=== PATIENT | male | born 1945 | race American Indian/Alaskan Native ===

== ENCOUNTER 2019-01-09 10:59 | Inpatient (IN) | payer MEDICARE, OTHER ==
--- NOTE | 2019-01-09 11:08 | Emergency Department Report ---
ED Altered Mental Status HPI - General Stated Complaint: NEURO ISSUES Time Seen by Provider: 01/09/19 11:00 Source: EMS Mode of arrival: Stretcher Limitations: Altered Mental Status - History of Present Illness Initial Comments: 73-year-old male with a past medical history of Alzheimer's dementia, hyperlipidemia, hypertension, and history of prostate cancer presents to the hospital from retirement with complaints of alteration in mental status. Patient presents as a stroke alert. Last known well time was 10:00 PM. At 9 AM staff noted that patient was sleeping in the bed. When he checked on him at 10 AM he was on the floor all response to painful stimuli. EMS reports the patient was unresponsive to painful stimuli upon their arrival but has slowly become more responsive in route to the hospital. Patient now currently opens his eyes on command but is not speaking and reliably fine other commands. EMS reports normal vitals with exception of heart rate in the 130s. EMS also reports that pt might be altered due to Seroquel provided by assisted. At patient's baseline he is confused, needs supervision during ambulating and tolieting. He assistance with bathing, dressing, eating, and grooming. Patient's daughter states that patient was recently admitted and discharged from [facility] for decreased mental status and decreased by mouth intake. Sy mptoms were thought to be due to UTI, dehydration, and possible Ambien use although daughter states to her knowledge patient is not currently on Ambien. - Related Data Home Medications Medication Instructions Recorded Confirmed Last Taken Aspirin EC [Aspirin Enteric Coated 81 mg PO QDAY 01/09/19 01/09/19 Unknown TAB] Cefdinir 300 mg PO BID 01/09/19 01/09/19 Unknown Cholecalciferol (Vitamin D3) 2,000 unit PO QDAY 01/09/19 01/09/19 Unknown [Vitamin D3 2,000 UNIT CAP] Lisinopril [Zestril TAB] 40 mg PO QDAY 01/09/19 01/09/19 Unknown Montelukast [Singulair] 10 mg PO QPM 01/09/19 01/09/19 Unknown QUEtiapine [SEROquel] 75 mg PO BID 01/09/19 01/09/19 Unknown Thiamine HCl 100 mg PO DAILY 01/09/19 01/09/19 Unknown amLODIPine [Norvasc] 5 mg PO DAILY 01/09/19 01/09/19 Unknown Allergies Allergy/AdvReac Type Severity Reaction Status Date / Time No Known Allergies Allergy Unverified 01/09/19 11:01 ED Review of Systems ROS: Stated complaint: NEURO ISSUES Other details as noted in HPI Comment: Unobtainable due to pts medical conditions (pt does not answer questions) ED Past Medical Hx - Medications Home Medications: Home Medications Medication Instructions Recorded Confirmed Last Taken Type Aspirin EC [Aspirin Enteric Coated 81 mg PO QDAY 01/09/19 01/09/19 Unknown History TAB] Cefdinir 300 mg PO BID 01/09/19 01/09/19 Unknown History Cholecalciferol (Vitamin D3) 2,000 unit PO QDAY 01/09/19 01/09/19 Unknown History [Vitamin D3 2,000 UNIT CAP] Lisinopril [Zestril TAB] 40 mg PO QDAY 01/09/19 01/09/19 Unknown History Montelukast [Singulair] 10 mg PO QPM 01/09/19 01/09/19 Unknown History QUEtiapine [SEROquel] 75 mg PO BID 01/09/19 01/09/19 Unknown History Thiamine HCl 100 mg PO DAILY 01/09/19 01/09/19 Unknown History amLODIPine [Norvasc] 5 mg PO DAILY 01/09/19 01/09/19 Unknown History ED Physical Exam - Other Other exam information: General: No limitations, patient is alert in no acute distress Head exam: Atraumatic/no hematoma, normocephalic Eyes exam: Normal appearance, pupils equal and reactive to light Neck exam: Normal inspection, full range of motion, no meningismus nontender Respiratory exam: Clear to auscultation bilateral, no wheezes, rales, crackles Cardiovascular: Normal rate and rhythm, normal heart sounds Abdomen: Soft, nondistended, and nontender, with normal bowel sounds, no rebound, or guarding Extremity: Full range of motion normal inspection no deformity Back: Normal Inspection, full range of motion, no tenderness Neurologic: Altered but open eyes to command in voice. Sensation grossly intact. Equal bilateral upper and lower extremity strength. Does not consistently follow commands. Does not answer orientation questions. Psychiatric: normal affect, normal mood Skin: Warm, dry, intact ED Course Vital Signs 01/09/19 01/09/19 01/09/19 10:58 11:36 11:45 Pulse Rate 92 H Respiratory 22 Rate Blood Pressure 124/85 126/85 O2 Sat by Pulse 100 98 97 Oximetry 01/09/19 01/09/19 01/09/19 12:00 12:15 12:30 Pulse Rate 99 H 95 H Respiratory 13 13 Rate Blood Pressure 126/85 124/85 124/85 O2 Sat by Pulse 98 97 Oximetry 01/09/19 01/09/19 01/09/19 12:46 13:00 13:15 Pulse Rate 110 H 96 H 89 Respiratory 25 H 39 H 38 H Rate Blood Pressure 126/80 128/85 141/85 O2 Sat by Pulse 99 99 99 Oximetry 01/09/19 01/09/19 01/09/19 13:30 13:45 14:00 Pulse Rate 90 89 91 H Respiratory 37 H 29 H 40 H Rate Blood Pressure 131/83 133/88 138/86 O2 Sat by Pulse 95 99 99 Oximetry - Reevaluation(s) Reevaluation #1: 01/09/19 14:30 pt had a seizure, ativan and keppra ordered, will inform admitting hospitalist - Consultations Consultation #1: 01/09/19 11:08 Case d/w Neurology Dr Choi (he evaluated pt) agrees sx likely related to encephalopathy as opposed to stroke. see his note - Lab Data Result diagrams: 01/09/19 11:28 01/09/19 11:39 Lab Results 01/09/19 01/09/19 01/09/19 Range/Units 11:05 11:28 11:28 WBC 5.6 (4.5-11.0) K/mm3 RBC 4.48 (3.65-5.03) M/mm3 Hgb 12.8 (11.8-15.2) gm/dl Hct 38.4 (35.5-45.6) % MCV 86 (84-94) fl MCH 29 (28-32) pg MCHC 33 (32-34) % RDW 15.2 (13.2-15.2) % Plt Count 214 (140-440) K/mm3 Lymph % (Auto) 33.1 (13.4-35.0) % [place] % (Auto) 7.4 H (0.0-7.3) % Eos % (Auto) 2.1 (0.0-4.3) % Baso % (Auto) 0.9 (0.0-1.8) % Lymph # 1.8 (1.2-5.4) K/mm3 [place] # 0.4 (0.0-0.8) K/mm3 Eos # 0.1 (0.0-0.4) K/mm3 Baso # 0.0 (0.0-0.1) K/mm3 Seg Neutrophils % 56.5 (40.0-70.0) % Seg Neutrophils # 3.1 (1.8-7.7) K/mm3 PT 14.0 (12.2-14.9) Sec. INR 1.02 (0.87-1.13) APTT 30.0 (24.2-36.6) Sec. Thrombin Time 16.8 (15.1-19.6) Sec. VBG pH (7.320-7.420) Sodium (137-145) mmol/L Potassium (3.6-5.0) mmol/L Chloride (98-107) mmol/L Carbon Dioxide (22-30) mmol/L Anion Gap mmol/L BUN (9-20) mg/dL Creatinine (0.8-1.5) mg/dL Estimated GFR ml/min BUN/Creatinine Ratio % Glucose (75-100) mg/dL POC Glucose 108 H (70-105) Lactic Acid (0.7-2.0) mmol/L Calcium (8.4-10.2) mg/dL Total Bilirubin (0.1-1.2) mg/dL AST (5-40) units/L ALT (7-56) units/L Alkaline Phosphatase (35-129) units/L Ammonia (25-60) umol/L Total Creatine Kinase (55-170) units/L CK-MB (CK-2) (0.0-4.0) ng/mL CK-MB (CK-2) Rel Index (0-4) Troponin T (0.00-0.029) ng/mL Total Protein (6.3-8.2) g/dL Albumin (3.9-5) g/dL Albumin/Globulin Ratio % TSH (0.270-4.200) mlU/mL Free T4 (0.76-1.46) ng/dL Urine Color (Yellow) Urine Turbidity (Clear) Urine pH (5.0-7.0) Ur Specific [place] (1.003-1.030) Urine Protein (Negative) mg/dL Urine Glucose (UA) (Negative) mg/dL Urine Ketones (Negative) mg/dL Urine Blood (Negative) Urine Nitrite (Negative) Urine Bilirubin (Negative) Urine Urobilinogen (<2.0) mg/dL Ur Leukocyte Esterase (Negative) Urine WBC (Auto) (0.0-6.0) /HPF Urine RBC (Auto) (0.0-6.0) /HPF Urine Mucus /HPF Urine Opiates Screen Urine Methadone Screen Ur Barbiturates Screen Ur Phencyclidine Scrn Ur Amphetamines Screen U Benzodiazepines Scrn Urine Cocaine Screen U Marijuana (THC) Screen Drugs of Abuse Note 01/09/19 01/09/19 01/09/19 Range/Units 11:28 11:28 11:28 WBC (4.5-11.0) K/mm3 RBC (3.65-5.03) M/mm3 Hgb (11.8-15.2) gm/dl Hct (35.5-45.6) % MCV (84-94) fl MCH (28-32) pg MCHC (32-34) % RDW (13.2-15.2) % Plt Count (140-440) K/mm3 Lymph % (Auto) (13.4-35.0) % [place] % (Auto) (0.0-7.3) % Eos % (Auto) (0.0-4.3) % Baso % (Auto) (0.0-1.8) % Lymph # (1.2-5.4) K/mm3 [place] # (0.0-0.8) K/mm3 Eos # (0.0-0.4) K/mm3 Baso # (0.0-0.1) K/mm3 Seg Neutrophils % (40.0-70.0) % Seg Neutrophils # (1.8-7.7) K/mm3 PT (12.2-14.9) Sec. INR (0.87-1.13) APTT (24.2-36.6) Sec. Thrombin Time (15.1-19.6) Sec. VBG pH (7.320-7.420) Sodium (137-145) mmol/L Potassium (3.6-5.0) mmol/L Chloride (98-107) mmol/L Carbon Dioxide (22-30) mmol/L Anion Gap mmol/L BUN (9-20) mg/dL Creatinine (0.8-1.5) mg/dL Estimated GFR ml/min BUN/Creatinine Ratio % Glucose (75-100) mg/dL POC Glucose (70-105) Lactic Acid (0.7-2.0) mmol/L Calcium (8.4-10.2) mg/dL Total Bilirubin (0.1-1.2) mg/dL AST (5-40) units/L ALT (7-56) units/L Alkaline Phosphatase (35-129) units/L Ammonia 34.0 (25-60) umol/L Total Creatine Kinase 99 (55-170) units/L CK-MB (CK-2) 1.7 (0.0-4.0) ng/mL CK-MB (CK-2) Rel Index 1.7 (0-4) Troponin T < 0.010 (0.00-0.029) ng/mL Total Protein (6.3-8.2) g/dL Albumin (3.9-5) g/dL Albumin/Globulin Ratio % TSH 0.709 (0.270-4.200) mlU/mL Free T4 0.89 (0.76-1.46) ng/dL Urine Color (Yellow) Urine Turbidity (Clear) Urine pH (5.0-7.0) Ur Specific [place] (1.003-1.030) Urine Protein (Negative) mg/dL Urine Glucose (UA) (Negative) mg/dL Urine Ketones (Negative) mg/dL Urine Blood (Negative) Urine Nitrite (Negative) Urine Bilirubin (Negative) Urine Urobilinogen (<2.0) mg/dL Ur Leukocyte Esterase (Negative) Urine WBC (Auto) (0.0-6.0) /HPF Urine RBC (Auto) (0.0-6.0) /HPF Urine Mucus /HPF Urine Opiates Screen Urine Methadone Screen Ur Barbiturates Screen Ur Phencyclidine Scrn Ur Amphetamines Screen U Benzodiazepines Scrn Urine Cocaine Screen U Marijuana (THC) Screen Drugs of Abuse Note 01/09/19 01/09/19 01/09/19 Range/Units 11:28 11:28 11:39 WBC (4.5-11.0) K/mm3 RBC (3.65-5.03) M/mm3 Hgb (11.8-15.2) gm/dl Hct (35.5-45.6) % MCV (84-94) fl MCH (28-32) pg MCHC (32-34) % RDW (13.2-15.2) % Plt Count (140-440) K/mm3 Lymph % (Auto) (13.4-35.0) % [place] % (Auto) (0.0-7.3) % Eos % (Auto) (0.0-4.3) % Baso % (Auto) (0.0-1.8) % Lymph # (1.2-5.4) K/mm3 [place] # (0.0-0.8) K/mm3 Eos # (0.0-0.4) K/mm3 Baso # (0.0-0.1) K/mm3 Seg Neutrophils % (40.0-70.0) % Seg Neutrophils # (1.8-7.7) K/mm3 PT (12.2-14.9) Sec. INR (0.87-1.13) APTT (24.2-36.6) Sec. Thrombin Time (15.1-19.6) Sec. VBG pH 7.441 H (7.320-7.420) Sodium 144 (137-145) mmol/L Potassium 4.0 (3.6-5.0) mmol/L Chloride 110.7 H (98-107) mmol/L Carbon Dioxide 21 L (22-30) mmol/L Anion Gap 16 mmol/L BUN 21 H (9-20) mg/dL Creatinine 1.1 (0.8-1.5) mg/dL Estimated GFR > 60 ml/min BUN/Creatinine Ratio 19 % Glucose 113 H (75-100) mg/dL POC Glucose (70-105) Lactic Acid 3.60 H* (0.7-2.0) mmol/L Calcium 9.1 (8.4-10.2) mg/dL Total Bilirubin 0.30 (0.1-1.2) mg/dL AST 17 (5-40) units/L ALT 15 (7-56) units/L Alkaline Phosphatase 63 (35-129) units/L Ammonia (25-60) umol/L Total Creatine Kinase (55-170) units/L CK-MB (CK-2) (0.0-4.0) ng/mL CK-MB (CK-2) Rel Index (0-4) Troponin T (0.00-0.029) ng/mL Total Protein 7.0 (6.3-8.2) g/dL Albumin 3.6 L (3.9-5) g/dL Albumin/Globulin Ratio 1.1 % TSH (0.270-4.200) mlU/mL Free T4 (0.76-1.46) ng/dL Urine Color (Yellow) Urine Turbidity (Clear) Urine pH (5.0-7.0) Ur Specific [place] (1.003-1.030) Urine Protein (Negative) mg/dL Urine Glucose (UA) (Negative) mg/dL Urine Ketones (Negative) mg/dL Urine Blood (Negative) Urine Nitrite (Negative) Urine Bilirubin (Negative) Urine Urobilinogen (<2.0) mg/dL Ur Leukocyte Esterase (Negative) Urine WBC (Auto) (0.0-6.0) /HPF Urine RBC (Auto) (0.0-6.0) /HPF Urine Mucus /HPF Urine Opiates Screen Urine Methadone Screen Ur Barbiturates Screen Ur Phencyclidine Scrn Ur Amphetamines Screen U Benzodiazepines Scrn Urine Cocaine Screen U Marijuana (THC) Screen Drugs of Abuse Note 01/09/19 01/09/19 Range/Units 12:52 12:57 WBC (4.5-11.0) K/mm3 RBC (3.65-5.03) M/mm3 Hgb (11.8-15.2) gm/dl Hct (35.5-45.6) % MCV (84-94) fl MCH (28-32) pg MCHC (32-34) % RDW (13.2-15.2) % Plt Count (140-440) K/mm3 Lymph % (Auto) (13.4-35.0) % [place] % (Auto) (0.0-7.3) % Eos % (Auto) (0.0-4.3) % Baso % (Auto) (0.0-1.8) % Lymph # (1.2-5.4) K/mm3 [place] # (0.0-0.8) K/mm3 Eos # (0.0-0.4) K/mm3 Baso # (0.0-0.1) K/mm3 Seg Neutrophils % (40.0-70.0) % Seg Neutrophils # (1.8-7.7) K/mm3 PT (12.2-14.9) Sec. INR (0.87-1.13) APTT (24.2-36.6) Sec. Thrombin Time (15.1-19.6) Sec. VBG pH (7.320-7.420) Sodium (137-145) mmol/L Potassium (3.6-5.0) mmol/L Chloride (98-107) mmol/L Carbon Dioxide (22-30) mmol/L Anion Gap mmol/L BUN (9-20) mg/dL Creatinine (0.8-1.5) mg/dL Estimated GFR ml/min BUN/Creatinine Ratio % Glucose (75-100) mg/dL POC Glucose (70-105) Lactic Acid (0.7-2.0) mmol/L Calcium (8.4-10.2) mg/dL Total Bilirubin (0.1-1.2) mg/dL AST (5-40) units/L ALT (7-56) units/L Alkaline Phosphatase (35-129) units/L Ammonia (25-60) umol/L Total Creatine Kinase (55-170) units/L CK-MB (CK-2) (0.0-4.0) ng/mL CK-MB (CK-2) Rel Index (0-4) Troponin T (0.00-0.029) ng/mL Total Protein (6.3-8.2) g/dL Albumin (3.9-5) g/dL Albumin/Globulin Ratio % TSH (0.270-4.200) mlU/mL Free T4 (0.76-1.46) ng/dL Urine Color Yellow (Yellow) Urine Turbidity Clear (Clear) Urine pH 5.0 (5.0-7.0) Ur Specific [place] 1.034 H (1.003-1.030) Urine Protein <15 mg/dl (Negative) mg/dL Urine Glucose (UA) Neg (Negative) mg/dL Urine Ketones Tr (Negative) mg/dL Urine Blood Neg (Negative) Urine Nitrite Neg (Negative) Urine Bilirubin Neg (Negative) Urine Urobilinogen 2.0 (<2.0) mg/dL Ur Leukocyte Esterase Neg (Negative) Urine WBC (Auto) 2.0 (0.0-6.0) /HPF Urine RBC (Auto) 4.0 (0.0-6.0) /HPF Urine Mucus Few /HPF Urine Opiates Screen Presumptive negative Urine Methadone Screen Presumptive negative Ur Barbiturates Screen Presumptive negative Ur Phencyclidine Scrn Presumptive negative Ur Amphetamines Screen Presumptive negative U Benzodiazepines Scrn Presumptive negative Urine Cocaine Screen Presumptive negative U Marijuana (THC) Screen Presumptive negative Drugs of Abuse Note Disclamer - EKG Data -: EKG Interpreted by [place] EKG shows normal: sinus rhythm, axis (qrs 9), QRS complexes (qrsd 108), ST-T waves (no stemi/t inv) Rate: tachycardia (104) When compared to previous EKG there are: previous EKG unavailable - Radiology Data Radiology results: report reviewed Chest x-ray: No acute findings CT head: Evidence of atrophy and microangiopathic ischemic disease no acute intracranial process CT cervical spine: Mild cervical spondylosis. No acute process - Medical Decision Making pt still altered but more alert. Physically combative with staff doing procedures with good strength. Urine has a high specific gravity. No signs of infection identified. No cause of alteration in mental status identified at this time. Elevated lactic acid noted without signs of infection or abdominal pain. Normal saline initiated Hospitalist to admit/Dr De Leon pt had a sz after admission orders placed ativan and naseem ordered Dr De Leon at bedside - Differential Diagnosis infection, encephalopathy, ICH, CVA, UTI, medication reaction Critical Care Time: No Critical care attestation.: If time is entered above; I have spent that time in minutes in the direct care of this critically ill patient, excluding procedure time. ED Disposition Clinical Impression: Encephalopathy, Dehydration, Elevated lactic acid level, Dementia, Seizure Disposition: -09 OP ADMIT IP TO THIS HOSP Is pt being admited?: Yes Condition: Stable Referrals: CESAR BENÍTEZ MD [Primary Care Provider] - 3-5 Days Time of Disposition: 13:33
--- NOTE | 2019-01-09 11:11 | Emergency Department Report ---
HPI - General Chief Complaint: Altered Mental Status Time Seen by Provider: 01/09/19 11:00 - HPI HPI: [facility] Asked to see this patient in telemedicine consultation. Consultation was performed with assistance of ancillary/medical staff at bedside. Comments: Last Known normal 2200 Door Time: 1100 [facility] Contacted: 1046 [facility] first log in: 1050 NIHSS assessment time: 1105 Call back time: 1106 Needle Time: no iv tpa HPI: 73 yom with hx of dementia, htn, on seroquel was last seen normal last night. He was seen by staff sleeping at 9 am and they found him on the ground altered at 10 am. EMS was called to the seen and stated he was slightly weaker on his R with his health aid and was altered. He improved with his mentation en route to ED but still not following commands consistently and not providing much hx. He may have taken extra seroquel today, [place] staff was unsure. ED Review of Systems ROS: Stated complaint: NEURO ISSUES Other details as noted in HPI Physical Exam - Physical Exam General: VSS Gen Wn/Wd in Nad TeleStroke Assessment: LOC: 0 LOC questions: 2 LOC Commands : 0 Gaze : 0 Visual stone : 0 Facial movements : 0 Upper limb Motor 3+3 Lower limb Motor 3+3 Limb Coordination - 0 Sensory - - 0 Language - 3 Speech - 0 Neglect / extinction - 0 NIHSS Score: 17 ED Medical Decision Making - Medical Decision Making IMPRESSION AMS/encephalopathy, suspect med effects can't exclude stroke Hx of dementia hx of hypertension Medical Decision Making: Patient is not candidate for alteplase due to non focal / localizing exam and onset greater than 4.5hrs Not an IR candidate as low clinical suspicion for LVO by neurologic assessment. Recommendations: - Daily antithrombotics to initiate now if no contraindication. - Further work up with labs, MRI brain, will be deferred to inpt neurology service - Needs Inpatient Neurology consultation and follow up - Thank you for allowing us to participate in the care of your patient, if there are any questions please don't hesitate to contact us Discussed plan of care with hospital staff Physician: Jhoana Choi, DO [facility] Critical care attestation.: If time is entered above; I have spent that time in minutes in the direct care of this critically ill patient, excluding procedure time. ED Disposition Clinical Impression: Encephalopathy Disposition: [id number] OP ADMIT IP TO THIS HOSP Is pt being admited?: Yes Condition: Stable
--- NOTE | 2019-01-09 11:42 | Cat Scan Report ---
CT HEAD WITHOUT CONTRAST: HISTORY: Altered mental status, stroke. TECHNIQUE: Sequential CT images without contrast. FINDINGS: Images obtained show bilateral prominence of the sulci and ventricles. There are no abnormal intra- or extra-axial blood or fluid collections. There are no focal masses or evidence of mass effect. No evidence for hemorrhage. The [place] white matter differentiation appears within normal limits. Regions of periventricular decreased attenuation are consistent with microangiopathic ischemic disease. The posterior fossa structures including the fourth ventricle, cerebellum, and brainstem appear normal. IMPRESSION: Evidence of atrophy and microangiopathic ischemic disease. No acute intracranial process noted. These findings were discussed with Dr. Arora in the emergency department at 1137 hrs.
--- NOTE | 2019-01-09 11:43 | Cat Scan Report ---
CT SCAN OF THE CERVICAL SPINE: HISTORY: Altered mental status, possible stroke, fall. TECHNIQUE: Contiguous 1.25 mm axial images of the cervical spine were obtained. Sagittal and coronal reformatted images. FINDINGS: There is normal alignment of the cervical spine. The body, pedicles and posterior ligaments are intact. No evidence of fracture or subluxation is seen. The spinal canal appears normal. Mild degenerative disc disease and facet arthropathy are identified at C5-6 and C6-7. The prevertebral soft tissues appear normal. IMPRESSION: Mild cervical spondylosis. No acute process is noted.
[2019-01-09 11:47] LABS: Basophils % (Auto) 0.9 % (0.0-1.8); Eosinophils # (Auto) 0.1 K/mm3 (0.0-0.4); Eosinophils % (Auto) 2.1 % (0.0-4.3); Hematocrit 38.4 % (35.5-45.6); Hemoglobin 12.8 gm/dl (11.8-15.2); Lymphocytes # (Auto) 1.8 K/mm3 (1.2-5.4); Lymphocytes % (Auto) 33.1 % (13.4-35.0); Mean Corpuscular HGB Conc 33 % (32-34); Mean Corpuscular Volume 86 fl (84-94); Monocytes # (Auto) 0.4 K/mm3 (0.0-0.8); Monocytes % (Auto) 7.4 % (0.0-7.3); Platelet Count 214 K/mm3 (140-440); Red Blood Count 4.48 M/mm3 (3.65-5.03); Red Cell Distribution Width 15.2 % (13.2-15.2)
[2019-01-09 12:00] LABS: INR 1.02 (0.87-1.13)
[2019-01-09 12:01] LABS: Thrombin Time 16.8 Sec. (15.1-19.6)
[2019-01-09 12:05] LABS: Creatine Kinase MB 1.7 ng/mL (0.0-4.0)
[2019-01-09 12:10] LABS: Alanine Aminotransferase 15 units/L (7-56); Albumin 3.6 g/dL (3.9-5); BUN/Creatinine Ratio 19; Blood Urea Nitrogen 21 mg/dL (9-20); Calcium 9.1 mg/dL (8.4-10.2); Hemolysis Index 4
[2019-01-09 12:19] LABS: Free T4 (Free Thyroxine) 0.89 ng/dL (0.76-1.46)
[2019-01-09] MEDS ORDERED: NACL 0.9% 1000 ML 1,000 ML IV ONE ×2 (12:25→16:00)
[2019-01-09 13:06] LABS: Bilirubin,Urine NEG (Negative); Blood,Urine NEG (Negative); Color,Urine Yellow (Yellow); Mucus,Urine FEW /HPF; Protein,Urine <15 mg/dL mg/dL (Negative)
[2019-01-09 13:17] LABS: Amphetamine Screen,Urine PRESUMPTIVE NEGATIVE; Benzodiazepines Screen,Urine PRESUMPTIVE NEGATIVE; Cannabinoid Screen,Urine PRESUMPTIVE NEGATIVE; Cocaine Screen,Urine PRESUMPTIVE NEGATIVE; Methadone Screen,Urine PRESUMPTIVE NEGATIVE; Opiate Screen,Urine PRESUMPTIVE NEGATIVE
--- NOTE | 2019-01-09 13:20 | XRay Report ---
AP CHEST: HISTORY: Altered mental status AP view of the chest demonstrates a normal mediastinal and cardiac contour with clear lungs and normal bony and soft tissue structures. IMPRESSION: Unremarkable AP chest.
--- NOTE | 2019-01-09 14:18 | History and Physical Report ---
History of Present Illness Chief complaint: Confusion and weakness on the right side History of present illness: 73 YO Male [facility] Facility Resident with HTN, HLD, Alzheimers Dementia, CaP presents to ED for evaluation. Pt is confused and unable to provide history. Pt history taken from son and daughter who is at bedside during exam and interview. As per family, the patient was in his usual state of health around bedtime at 2200hrs. Pt was found by SNF staff around 1000 Hrs today on the floor, unresponsive, with right sided weakness. EMS notified, and upon arrival the patient was found to be in distress. Code stroke was called and the patient transported to [facility] ED. Pt seen and evaluated in ED and found to have symptoms consistent with CVA as well as Encephalopathy, Volume depletion. Pt also experienced a witnessed seizure in ED. Pt was treated with Ativan. Teleneurology consulted in ED. Pt is outside therapeutic window for TPA as per Teleneurology. No further history obtainable. Pt is lethargic/Stuporous on exam, but patient is able to protect his airway. Pt admitted to telemetry and initiated on CVA protocol. No prior admissions for review. All listed medication reconciled at time of admission. Past History Past Medical History: cancer, hypertension, hyperlipidemia, other (Dementia) Past Surgical History: No surgical history Social history: single. denies: smoking, alcohol abuse, prescription drug abuse Family history: hypertension Medications and Allergies Allergies Allergy/AdvReac Type Severity Reaction Status Date / Time No Known Allergies Allergy Unverified 01/09/19 11:01 Home Medications Medication Instructions Recorded Confirmed Last Taken Type Aspirin EC [Aspirin Enteric Coated 81 mg PO QDAY 01/09/19 01/09/19 Unknown History TAB] Cefdinir 300 mg PO BID 01/09/19 01/09/19 Unknown History Cholecalciferol (Vitamin D3) 2,000 unit PO QDAY 01/09/19 01/09/19 Unknown History [Vitamin D3 2,000 UNIT CAP] Lisinopril [Zestril TAB] 40 mg PO QDAY 01/09/19 01/09/19 Unknown History Montelukast [Singulair] 10 mg PO QPM 01/09/19 01/09/19 Unknown History QUEtiapine [SEROquel] 75 mg PO BID 01/09/19 01/09/19 Unknown History Thiamine HCl 100 mg PO DAILY 01/09/19 01/09/19 Unknown History amLODIPine [Norvasc] 5 mg PO DAILY 01/09/19 01/09/19 Unknown History Review of Systems ROS unobtainable: due to mental status Exam - Constitutional Vitals: Temp Pulse Resp BP Pulse Ox 91 H 40 H 138/86 99 01/09/19 14:00 01/09/19 14:00 01/09/19 14:00 01/09/19 14:00 General appearance: Present: mild distress - EENT Eyes: Present: PERRL, miosis ENT: hearing intact, clear oral mucosa - Neck Neck: Present: supple, normal ROM - Respiratory Respiratory: bilateral: CTA - Cardiovascular Heart Sounds: Present: S1 & S2. Absent: rub, click - Extremities Extremities: pulses symmetrical, No edema Peripheral Pulses: within normal limits - Abdominal General gastrointestinal: Present: soft, non-tender, non-distended, normal bowel sounds Male genitourinary: Present: normal - Integumentary Integumentary: Present: clear, warm, dry - Musculoskeletal Musculoskeletal: generalized weakness - Psychiatric Psychiatric: no appropriate mood/affect, no intact judgment & insight, no memory intact - Neurologic Neurologic: CNII-XII intact, moves all extremities, no gait normal Results - Labs CBC & Chem 7: 01/09/19 11:28 01/09/19 11:39 Labs: Abnormal lab results 01/09/19 01/09/19 01/09/19 Range/Units 11:05 11:28 11:28 [place] % (Auto) 7.4 H (0.0-7.3) % VBG pH (7.320-7.420) Chloride (98-107) mmol/L Carbon Dioxide (22-30) mmol/L BUN (9-20) mg/dL Glucose (75-100) mg/dL POC Glucose 108 H (70-105) Lactic Acid 3.60 H* (0.7-2.0) mmol/L Albumin (3.9-5) g/dL Ur Specific [place] (1.003-1.030) 01/09/19 01/09/19 01/09/19 Range/Units 11:28 11:39 12:57 [place] % (Auto) (0.0-7.3) % VBG pH 7.441 H (7.320-7.420) Chloride 110.7 H (98-107) mmol/L Carbon Dioxide 21 L (22-30) mmol/L BUN 21 H (9-20) mg/dL Glucose 113 H (75-100) mg/dL POC Glucose (70-105) Lactic Acid (0.7-2.0) mmol/L Albumin 3.6 L (3.9-5) g/dL Ur Specific [place] 1.034 H (1.003-1.030) Assessment and Plan - Patient Problems (1) CVA (cerebral vascular accident) Current Visit: Yes Status: Acute Qualifiers: Laterality of affected vessel: unspecified Plan to address problem: Stroke Protocol: Admit to telemetry, echo, CT head, MRI Brain, MRA Brain, Echo, Carotid doppler, PT/OT/ Speech Therapy, Lipid panel, antiplatelet therapy, Neurology consulted in ED. (2) Encephalopathy Current Visit: Yes Status: Acute Plan to address problem: CT head, neuro checks, thyroid panel, seizure precatuions, (3) Seizure Current Visit: Yes Status: Acute Plan to address problem: Keppra loading dose, EEG, Neurology consulted, (4) HTN (hypertension) Current Visit: Yes Status: Acute Qualifiers: Hypertension type: essential hypertension Qualified Code(s): I10 - Essential (primary) hypertension Plan to address problem: Monitor BP q shift, continue medical management. (5) HLD (hyperlipidemia) Current Visit: Yes Status: Acute Qualifiers: Hyperlipidemia type: mixed hyperlipidemia Qualified Code(s): E78.2 - Mixed hyperlipidemia Plan to address problem: lipid panel, statin therapy (6) Prostate cancer Current Visit: Yes Status: Acute Plan to address problem: Pain control, supportive care. (7) DVT prophylaxis Current Visit: Yes Status: Acute Plan to address problem: SCD to BLE while in bed.
[2019-01-09] MEDS ORDERED: PHENERGAN PR PRN (14:19)
[2019-01-09] MEDS ORDERED: MILK OF MAGNESIA PO PRN (14:19)
[2019-01-09] MEDS ORDERED: DULCOLAX PR PRN (14:19)
[2019-01-09] MEDS ORDERED: TYLENOL PO PRN (14:19)
[2019-01-09] MEDS ORDERED: ZOFRAN IV PRN (14:19)
[2019-01-09] MEDS ORDERED: REGLAN PO PRN (14:19)
[2019-01-09] MEDS ORDERED: SODIUM CHLORIDE FLUSH SYRINGE 10 ML IV PRN (14:19)
[2019-01-09] MEDS ORDERED: ATIVAN IV ONE (14:27)
[2019-01-09] MEDS ORDERED: KEPPRA 1,000 MG/NS 0.75% 100ML 1,000 MG/100 ML BAG IV ONE (14:28)
[2019-01-09] MEDS ORDERED: ATIVAN ONE (14:29)
[2019-01-09] MEDS ORDERED: ATIVAN IV NR (14:45)
[2019-01-09] MEDS ORDERED: NACL 0.9% 1000 ML 1,000 ML ONE (15:50)
--- NOTE | 2019-01-09 16:27 | Vascular Lab Report ---
PROCEDURE: VL CAROTID DUPLEX BILAT TECHNIQUE: Ultrasound of the bilateral carotid arteries. Reported ICA Stenosis % per the NASCET crite danna. HISTORY: stroke . Dementia and encephalopathy. Hypertension COMPARISONS: None FINDINGS: PLAQUE DISTRIBUTION: There is mild intimal thickening in both carotid systems. VELOCITIES: RIGHT ICA peak systolic velocity (cm/sec): 84 ICA end diastolic velocity (cm/sec): 13 CCA peak systolic velocity (cm/sec): 111 ECA peak systolic velocity (cm/sec): 138 ICA/CCA systolic velocity ratio (cm/sec): 0.76 Right vertebral: Antegrade ICA STENOSIS ESTIMATION: < 50 % LEFT ICA peak systolic velocity (cm/sec): 84 ICA end diastolic velocity (cm/sec): 11 CCA peak systolic velocity (cm/sec): 122 ECA peak systolic velocity (cm/sec): 134 ICA/CCA systolic velocity ratio (cm/sec): 0.69 Left vertebral: Antegrade ICA STENOSIS ESTIMATION: < 50 % IMPRESSION: No clinically significant areas of stenosis noted bilaterally. ICA Stenosis % per the NASCET criteria is < 50 % on the right and < 50 % on the left. This document is electronically signed by Roxana Hutchison MD., January 09 2019 04:25:57 PM ET
--- NOTE | 2019-01-09 16:50 | Cat Scan Report ---
PROCEDURE: CT ANGIOGRAM OF THE CHEST FOR PULMONARY EMBOLISM TECHNIQUE: Computerized axial tomographic angiography of the chest and pulmonary arteries was perfor med after the IV injection of iodinated nonionic contrast. The image data was postprocessed using max imum intensity projection (MIP) and 2-dimensional multiplanar reformatted (MPR) techniques. The exami nation is specifically tailored to the evaluation of the pulmonary arteries per clinical request. Au tomated exposure control, adjustment of mA and/or kV according to patient size, or iterative reconstr uction dose optimization techniques were utilized. CPT G9637, 29471 HISTORY: Shortness of breath R06.02, chest pain unspecified R07.9 , COMPARISONS: None . FINDINGS: Heart and pericardium: Normal. Thoracic aorta: Normal caliber of the thoracic aorta without evidence for aneurysm. Conventional bra nching pattern of the aortic arch. Pulmonary vasculature: Normal. No pulmonary emboli. Lymph nodes: No enlarged thoracic lymph nodes. Lungs: Minimal dependent atelectasis at the bilateral lung bases. No suspicious nodule or mass. Pleural space: No effusion, thickening, or pneumothorax. Musculoskeletal structures: No significant abnormality. Upper abdominal structures: No significant abnormality. IMPRESSION: No pulmonary embolism. Minimal dependent atelectasis at the bilateral lung bases. This document is electronically signed by Katie Gutierrez MD., January 09 2019 04:48:48 PM ET
[2019-01-09] MEDS: SINGULAIR PO SCH (20:05)
[2019-01-09] MEDS ORDERED: TYLENOL PR ONE ×2 (20:10→20:15)
[2019-01-09] MEDS ORDERED: VANCOMYCIN PHARMACY TO DOSE IV SCH (21:00)
[2019-01-09] MEDS ORDERED: NACL 0.45% 500 ML IV SCH (21:00)
[2019-01-09] MEDS ORDERED: VANCOMYCIN 1,500 MG in NACL 0.9% 500 ML 500 ML IV ONE (22:00)
[2019-01-09] MEDS: LOVENOX SUB-Q SCH (22:46)
[2019-01-09] MEDS: NACL 0.45% 1000 ML 1,000 ML IV SCH (22:46)
--- NOTE | 2019-01-10 06:20 | Event Note ---
Date: 01/10/19 [facility] Please follow-up with transfer
[2019-01-10] MEDS ORDERED: NON-FORMULARY (Cholecalciferol (Vitamin D3) [Vitamin D3 2,000 Unit Cap] 2,000 UNIT) PO SCH (10:00)
[2019-01-10] MEDS: LEVAQUIN 750MG/150ML 750 MG/150 ML BAG IV SCH (10:10)
[2019-01-10] MEDS: NACL 0.45% 1000 ML 1,000 ML IV SCH (15:40)
[2019-01-10] MEDS: VANCOMYCIN 1,250 MG in NACL 0.9% 250ML 250 ML IV SCH (15:41)
[2019-01-10] MEDS: KEPPRA 750 MG in NACL 0.9% 100 ML IV SCH ×2 (15:41→21:32)
[2019-01-10] MEDS: VITAMIN B-1 PO SCH (15:42)
[2019-01-10] MEDS: ASPIRIN PO SCH (15:42)
[2019-01-10] MEDS: VITAMIN D3 PO SCH (15:43)
--- NOTE | 2019-01-10 15:50 | Progress Note ---
Assessment and Plan Assessment and plan: Encephalopathy neurochecks q 6h Neurology to see new onset seizure in ED MRI ordered neurology to see Dementia Lives at SNF Hypertension Fever Obtain blood cultures ID consulted started on empiric abx in ED Full code status Discussed with family at bedside History Interval history: Patient with baseline dementia Altered mental status fever seizure in ED Hospitalist Physical - Physical exam Narrative exam: Gen: Not in acute distress, lying in bed, Dementia HEENT: Normocephalic, atraumatic Neck: supple, no JVD Heart: S1 and S2 reg, no murmurs, rubs or gallop Lungs: Clear, no crackles Abd: soft, non tender, non distended, normal BS Ext: No edema, no clubbing, no cyanosis, Neuro: Awake,alert,dementia,moves all ext - Constitutional Vitals: Temp Pulse Resp BP Pulse Ox 98.9 F 69 20 129/82 85 01/10/19 08:38 01/10/19 08:37 01/10/19 08:37 01/10/19 08:37 01/10/19 08:37 General appearance: Present: mild distress Results - Labs CBC & Chem 7: 01/10/19 18:49 01/10/19 18:57 Labs: Laboratory Last Values WBC 5.6 K/mm3 (4.5-11.0) 01/09/19 11:28 RBC 4.48 M/mm3 (3.65-5.03) 01/09/19 11:28 Hgb 12.8 gm/dl (11.8-15.2) 01/09/19 11:28 Hct 38.4 % (35.5-45.6) 01/09/19 11:28 MCV 86 fl (84-94) 01/09/19 11:28 MCH 29 pg (28-32) 01/09/19 11:28 MCHC 33 % (32-34) 01/09/19 11:28 RDW 15.2 % (13.2-15.2) 01/09/19 11:28 Plt Count 214 K/mm3 (140-440) 01/09/19 11:28 Lymph % (Auto) 33.1 % (13.4-35.0) 01/09/19 11:28 [place] % (Auto) 7.4 % (0.0-7.3) H 01/09/19 11:28 Eos % (Auto) 2.1 % (0.0-4.3) 01/09/19 11:28 Baso % (Auto) 0.9 % (0.0-1.8) 01/09/19 11:28 Lymph # 1.8 K/mm3 (1.2-5.4) 01/09/19 11:28 [place] # 0.4 K/mm3 (0.0-0.8) 01/09/19 11:28 Eos # 0.1 K/mm3 (0.0-0.4) 01/09/19 11:28 Baso # 0.0 K/mm3 (0.0-0.1) 01/09/19 11:28 Seg Neutrophils % 56.5 % (40.0-70.0) 01/09/19 11:28 Seg Neutrophils # 3.1 K/mm3 (1.8-7.7) 01/09/19 11:28 PT 14.0 Sec. (12.2-14.9) 01/09/19 11:28 INR 1.02 (0.87-1.13) 01/09/19 11:28 APTT 30.0 Sec. (24.2-36.6) 01/09/19 11:28 Thrombin Time 16.8 Sec. (15.1-19.6) 01/09/19 11:28 VBG pH 7.441 (7.320-7.420) H 01/09/19 11:28 Sodium 144 mmol/L (137-145) 01/09/19 11:39 Potassium 4.0 mmol/L (3.6-5.0) 01/09/19 11:39 Chloride 110.7 mmol/L (98-107) H 01/09/19 11:39 Carbon Dioxide 21 mmol/L (22-30) L 01/09/19 11:39 Anion Gap 16 mmol/L 01/09/19 11:39 BUN 21 mg/dL (9-20) H 01/09/19 11:39 Creatinine 1.1 mg/dL (0.8-1.5) 01/09/19 11:39 Estimated GFR > 60 ml/min 01/09/19 11:39 BUN/Creatinine Ratio 19 % 01/09/19 11:39 Glucose 113 mg/dL (75-100) H 01/09/19 11:39 POC Glucose 108 (70-105) H 01/09/19 11:05 Lactic Acid 0.80 mmol/L (0.7-2.0) 01/10/19 05:22 Calcium 9.1 mg/dL (8.4-10.2) 01/09/19 11:39 Total Bilirubin 0.30 mg/dL (0.1-1.2) 01/09/19 11:39 AST 17 units/L (5-40) 01/09/19 11:39 ALT 15 units/L (7-56) 01/09/19 11:39 Alkaline Phosphatase 63 units/L (35-129) 01/09/19 11:39 Ammonia 34.0 umol/L (25-60) 01/09/19 11:28 Total Creatine Kinase 99 units/L (55-170) 01/09/19 11:28 CK-MB (CK-2) 1.7 ng/mL (0.0-4.0) 01/09/19 11:28 CK-MB (CK-2) Rel Index 1.7 (0-4) 01/09/19 11:28 Troponin T < 0.010 ng/mL (0.00-0.029) 01/09/19 11:28 Total Protein 7.0 g/dL (6.3-8.2) 01/09/19 11:39 Albumin 3.6 g/dL (3.9-5) L 01/09/19 11:39 Albumin/Globulin Ratio 1.1 % 01/09/19 11:39 TSH 0.709 mlU/mL (0.270-4.200) 01/09/19 11:28 Free T4 0.89 ng/dL (0.76-1.46) 01/09/19 11:28 Urine Color Yellow (Yellow) 01/09/19 12:57 Urine Turbidity Clear (Clear) 01/09/19 12:57 Urine pH 5.0 (5.0-7.0) 01/09/19 12:57 Ur Specific [place] 1.034 (1.003-1.030) H 01/09/19 12:57 Urine Protein <15 mg/dl mg/dL (Negative) 01/09/19 12:57 Urine Glucose (UA) Neg mg/dL (Negative) 01/09/19 12:57 Urine Ketones Tr mg/dL (Negative) 01/09/19 12:57 Urine Blood Neg (Negative) 01/09/19 12:57 Urine Nitrite Neg (Negative) 01/09/19 12:57 Urine Bilirubin Neg (Negative) 01/09/19 12:57 Urine Urobilinogen 2.0 mg/dL (<2.0) 01/09/19 12:57 Ur Leukocyte Esterase Neg (Negative) 01/09/19 12:57 Urine WBC (Auto) 2.0 /HPF (0.0-6.0) 01/09/19 12:57 Urine RBC (Auto) 4.0 /HPF (0.0-6.0) 01/09/19 12:57 Urine Mucus Few /HPF 01/09/19 12:57 Urine Opiates Screen Presumptive negative 01/09/19 12:52 Urine Methadone Screen Presumptive negative 01/09/19 12:52 Ur Barbiturates Screen Presumptive negative 01/09/19 12:52 Ur Phencyclidine Scrn Presumptive negative 01/09/19 12:52 Ur Amphetamines Screen Presumptive negative 01/09/19 12:52 U Benzodiazepines Scrn Presumptive negative 01/09/19 12:52 Urine Cocaine Screen Presumptive negative 01/09/19 12:52 U Marijuana (THC) Screen Presumptive negative 01/09/19 12:52 Drugs of Abuse Note Disclamer 01/09/19 12:52 Active Medications - Current Medications Current Medications: Generic Name Dose Route Start Last Admin Trade Name Freq PRN Reason Stop Dose Admin Acetaminophen 650 mg 01/09/19 14:19 Tylenol PO Q4H PRN Pain, Mild (1-3) Aspirin 325 mg 01/10/19 10:00 01/10/19 15:42 Aspirin PO 325 mg QDAY EDILSON Administration Atorvastatin Calcium 40 mg 01/09/19 22:00 01/10/19 03:44 Lipitor PO Not Given QHS [facility] Bisacodyl 10 mg 01/09/19 14:19 Dulcolax NE QDAY PRN Constipation Cholecalciferol 2,000 unit 01/10/19 10:00 01/10/19 15:43 Vitamin D3 PO 2,000 unit QDAY EDILSON Administration Enoxaparin Sodium 40 mg 01/09/19 22:00 01/09/19 22:46 Lovenox SUB-Q 40 mg QDAY@2200 EDILSON Administration Levofloxacin/Dextrose 750 mg in 150 mls @ 100 mls/hr 01/10/19 10:00 01/10/19 10:10 Levaquin 750mg/150ml IV 100 mls/hr Q24HR EDILSON Administration Protocol Sodium Chloride 1,000 mls @ 50 mls/hr 01/09/19 22:00 01/10/19 15:40 Nacl 0.45% 1000 Ml IV 50 mls/hr DIRECT EDILSON Administration Vancomycin HCl 1,250 mg/ 275 mls @ 166.667 mls/hr 01/10/19 10:00 01/10/19 15:41 Sodium Chloride IV 166.667 mls/hr Q18H EDILSON Administration Levetiracetam 750 mg/ Sodium 107.5 mls @ 400 mls/hr 01/10/19 11:00 01/10/19 15:41 Chloride IV 400 mls/hr Q12HR EDILSON Administration Magnesium Hydroxide 30 ml 01/09/19 14:19 Milk Of Magnesia PO Q4H PRN Constipation Metoclopramide HCl 10 mg 01/09/19 14:19 Reglan PO Q6H PRN Nausea And Vomiting Montelukast Sodium 10 mg 01/09/19 18:00 01/09/19 20:05 Singulair PO Not Given QPM [facility] Ondansetron HCl 4 mg 01/09/19 14:19 Zofran IV Q8H PRN Nausea And Vomiting Promethazine HCl 25 mg 01/09/19 14:19 Phenergan NE Q6H PRN Nausea And Vomiting Quetiapine Fumarate 75 mg 01/09/19 22:00 01/10/19 15:42 Seroquel PO 75 mg BID EDILSON Administration Sodium Chloride 10 ml 01/09/19 14:19 Sodium Chloride Flush Syringe 10 Ml IV PRN PRN LINE FLUSH Thiamine HCl 100 mg 01/10/19 10:00 01/10/19 15:42 Vitamin B-1 PO 100 mg DAILY EDILSON Administration Nutrition/Malnutrition Assess - Dietary Evaluation Nutrition/Malnutrition Findings: Nutrition Notes Start: 01/10/19 08:43 Freq: Status: Active Protocol: Document 01/10/19 08:43 CP (Rec: 01/10/19 09:02 CP [email or web address]) Co-Sign 01/10/19 08:43 LP Nutrition Notes 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 Pt was not in room at time of visit. Percent of energy/protein needs met: 0%/0% Burn Absent Trauma Absent #1 Nutrition Diagnosis Inadequate oral intake Etiology EKG, CVA protocol As Evidenced by Signs and Symptoms NPO status Is patient on ventilator? No Is Patient Ambulatory and/or Out of Bed No REE-([place] Jeor-confined to bed) 2038.422 Calculation [facility]ations [facility] Additional Notes Pro: (1-1.2g/kg) 77-93g/day Fluid: 1mL/kcal or per MD request Nutrition Intervention Change Diet Order: Advance per MD request Goal #1 Diet advancement Goal #2 PO intake to meet at least 75% of energy and protein needs once diet is advanced Anticipated Discharge Needs: Unable to determine at this time Follow-Up By: 01/11/19 Additional Comments F/U: Diet advancement/PO intakes
[2019-01-10] MEDS: SINGULAIR PO SCH (18:03)
--- NOTE | 2019-01-10 18:11 | Magnetic Resonance Report ---
PROCEDURE: MR BRAIN WO CON TECHNIQUE: Multiplanar multisequence noncontrast MR images of the brain were performed HISTORY: stroke patient had acute mental status change, motion is present. Patient was given sedative prior to the exam, best possible images COMPARISONS: CT brain 01/09/2019 FINDINGS: Fully formed corpus callosum. Unremarkable sella turcica, colliculi, brainstem and posterior fossa. No focal restricted diffusion. Cortical and central atrophy. Confluent periventricular white matter prolonged T2 signal intensity co mpatible with small vessel ischemic disease. Ethmoid air cell mucosal thickening in bilateral maxillary sinus mucosal thickening. Left mastoid eff usion. Normal T2 flow voids at the skull base. FLAIR images confirm the paratracheal white matter small vessel microangiopathic change. No midline shift. No mass effect. Prominent ventricles presumably ex vacuo dilatation. No mass lesion. Normal [place]-white differentiation. IMPRESSION: Cortical and central atrophy. No blood products, mass lesion, or acute restricted diffusion. Exam is mildly motion degraded but kzeia gnostic. Large lateral ventricles presumably ex vacuo dilatation. This document is electronically signed by Melodie Frias MD., January 10 2019 06:09:47 PM ET
--- NOTE | 2019-01-10 18:15 | Magnetic Resonance Report ---
PROCEDURE: MR MRA/MRV HEAD WO CON TECHNIQUE: 3-D [id number] images were performed HISTORY: stroke COMPARISONS: None FINDINGS: Source images demonstrate diminutive or hypoplastic right vertebral artery which ends below the basil ar confluence. There is a probable ghosting artifact adjacent to the basilar artery in the prepontine cistern. Normal branching of the posterior fossa. Motion degradation causes the distal cavernous portion of the right internal carotid artery to be non diagnostic. Normal course and caliber of the vessel distally. Similar findings in the left petrous carotid and cavernous carotid with slightly diminutive caliber o f the left TOSIN and MCA. IMPRESSION: Motion degraded exam with abnormal appearance of the posterior circulation with presumably a ghost ar tifact adjacent to the basilar artery from motion. 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 Incomplete assessment of the internal carotid arteries in the distal segments due to motion. The supr aclinoid vasculature appears to be normal with slightly diminutive caliber of the left MCA relative t o the right. Consider CTA [place] or repeating the MRA when the patient is able to cooperate.. This document is electronically signed by Melodie Frias MD., January 10 2019 06:13:37 PM ET
[2019-01-10 19:14] LABS: Hematocrit 37.6 % (35.5-45.6); Hemoglobin 12.6 gm/dl (11.8-15.2); Mean Corpuscular HGB Conc 34 % (32-34); Mean Corpuscular Volume 86 fl (84-94); Platelet Count 198 K/mm3 (140-440); Red Blood Count 4.35 M/mm3 (3.65-5.03)
[2019-01-10 19:28] LABS: BUN/Creatinine Ratio 8; Blood Urea Nitrogen 8 mg/dL (9-20); Calcium 8.7 mg/dL (8.4-10.2); Hemolysis Index 3
[2019-01-10] MEDS: LOVENOX SUB-Q SCH (21:22)
[2019-01-11] MEDS: VANCOMYCIN 1,250 MG in NACL 0.9% 250ML 250 ML IV SCH (03:46)
[2019-01-11 07:23] LABS: Chol/HDL Ratio 4.52 %
[2019-01-11] MEDS: KEPPRA 750 MG in NACL 0.9% 100 ML IV SCH ×2 (11:00→23:56)
[2019-01-11] MEDS: LEVAQUIN 750MG/150ML 750 MG/150 ML BAG IV SCH (11:14)
[2019-01-11] MEDS: VITAMIN B-1 PO SCH (11:15)
[2019-01-11] MEDS: POTASSIUM CHLORIDE FEEDTUBE SCH ×2 (11:15→12:00)
[2019-01-11] MEDS: ASPIRIN PO SCH (11:15)
--- NOTE | 2019-01-11 13:33 | Progress Note ---
Subjective Date of service: 01/11/19 Interval history: spoke to [employer] and went over entire hx this could be secondary to exposure to ambien seizure free at present went over labs/ imaging studies will follow up current exam is unremarkable Objective - Vital Sign Vital Signs - 12hr 01/11/19 01/11/19 01/11/19 03:00 04:00 09:30 Temperature 98.3 F Pulse Rate 67 73 78 Respiratory 16 18 Rate Blood Pressure 125/94 Blood Pressure 153/95 [Left] O2 Sat by Pulse 97 92 Oximetry 01/11/19 10:31 Temperature 98.3 F Pulse Rate Respiratory Rate Blood Pressure Blood Pressure [Left] O2 Sat by Pulse Oximetry - Laboratory Findings CBC and BMP: 01/10/19 18:49 01/10/19 18:57 Abnormal Lab Findings: Abnormal Labs 01/09/19 01/09/19 01/09/19 11:05 11:28 11:28 WBC [place] % (Auto) 7.4 H VBG pH Potassium Chloride Carbon Dioxide BUN Glucose POC Glucose 108 H Lactic Acid 3.60 H* Albumin HDL Cholesterol Ur Specific [place] 01/09/19 01/09/19 01/09/19 11:28 11:39 12:57 WBC [place] % (Auto) VBG pH 7.441 H Potassium Chloride 110.7 H Carbon Dioxide 21 L BUN 21 H Glucose 113 H POC Glucose Lactic Acid Albumin 3.6 L HDL Cholesterol Ur Specific [place] 1.034 H 01/09/19 01/10/19 01/10/19 13:39 18:49 18:57 WBC 3.6 L [place] % (Auto) VBG pH Potassium 3.0 L D Chloride Carbon Dioxide BUN 8 L Glucose POC Glucose Lactic Acid 2.20 H* Albumin HDL Cholesterol Ur Specific [place] 01/11/19 06:04 WBC [place] % (Auto) VBG pH Potassium Chloride Carbon Dioxide BUN Glucose POC Glucose Lactic Acid Albumin HDL Cholesterol 34 L Ur Specific [place]
[2019-01-11] MEDS: VITAMIN D3 PO SCH (14:42)
--- NOTE | 2019-01-11 14:55 | Consultation ---
History of Present Illness - Reason for Consult Consult date: 01/11/19 fever Requesting physician: GINI VELEZ - History of Present Illness 73 y/o male with history of Alzheimers Dementia, HTN, HLD; admitted on 01/09/2019 due to being found on the floor unresponsive with right sided weakness. Patient is somnolent unable to provide a history. Upon EMS arrival the patient was found to be in distress. Code stroke was called and the patient transported to [facility] ED. Per daughter, he had a UTI a week before admission and was treated with oral antibiotics (she does not remember the name). In the ED, temp 101.2, HR 92, R 22, O2 sat 100%, BP 124/85. WBC 5.6. Hg 12.8. Plat 214. Creat 1.1. Lactate 3.6 UA neg. UDS neg. CXR neg. CTA chest minimal dependant atelectasis. MRI brain showed cortical and central atrophy. No blood products, mass lesion, or acute restricted diffusion. Exam is mildly motion degraded but diagnostic. Large lateral ventricles presumably ex vacuo dilatation. In the ED patient experienced a witnessed seizure, treated with Ativan. Teleneurology consulted in ED. Pt is outside therapeutic window for TPA as per Teleneurology. Review of Systems: unable to obtain Past History Past Medical History: cancer, hypertension, hyperlipidemia, other (Dementia) Past Surgical History: No surgical history Social history: single. denies: smoking, alcohol abuse, prescription drug abuse Family history: hypertension Medications and Allergies Allergies Allergy/AdvReac Type Severity Reaction Status Date / Time No Known Allergies Allergy Unverified 01/09/19 11:01 Home Medications Medication Instructions Recorded Confirmed Last Taken Type Aspirin EC [Aspirin Enteric Coated 81 mg PO QDAY 01/09/19 01/09/19 Unknown History TAB] Cefdinir 300 mg PO BID 01/09/19 01/09/19 Unknown History Cholecalciferol (Vitamin D3) 2,000 unit PO QDAY 01/09/19 01/09/19 Unknown History [Vitamin D3 2,000 UNIT CAP] Lisinopril [Zestril TAB] 40 mg PO QDAY 01/09/19 01/09/19 Unknown History Montelukast [Singulair] 10 mg PO QPM 01/09/19 01/09/19 Unknown History QUEtiapine [SEROquel] 75 mg PO BID 01/09/19 01/09/19 Unknown History Thiamine HCl 100 mg PO DAILY 01/09/19 01/09/19 Unknown History amLODIPine [Norvasc] 5 mg PO DAILY 01/09/19 01/09/19 Unknown History Active Meds: Active Medications Acetaminophen (Tylenol) 650 mg PO Q4H PRN PRN Reason: Pain, Mild (1-3) Aspirin (Aspirin) 325 mg PO QDAY [facility] Last Admin: 01/11/19 11:15 Dose: 325 mg Documented by: Atorvastatin Calcium (Lipitor) 40 mg PO QHS [facility] Last Admin: 01/10/19 21:21 Dose: 40 mg Documented by: Bisacodyl (Dulcolax) 10 mg ND QDAY PRN PRN Reason: Constipation Cholecalciferol (Vitamin D3) 2,000 unit PO QDAY [facility] Last Admin: 01/11/19 14:42 Dose: Not Given Documented by: Enoxaparin Sodium (Lovenox) 40 mg SUB-Q QDAY@2200 [facility] Last Admin: 01/10/19 21:22 Dose: 40 mg Documented by: Levofloxacin/Dextrose (Levaquin 750mg/150ml) 750 mg in 150 mls @ 100 mls/hr IV Q24HR [facility]; Protocol Last Admin: 01/11/19 11:14 Dose: 100 mls/hr Documented by: Sodium Chloride (Nacl 0.45% 1000 Ml) 1,000 mls @ 50 mls/hr IV DIRECT [facility] Last Admin: 01/10/19 15:40 Dose: 50 mls/hr Documented by: Vancomycin HCl 1,250 mg/ (Sodium Chloride) 275 mls @ 166.667 mls/hr IV Q18H [facility] Last Admin: 01/11/19 03:46 Dose: 166.667 mls/hr Documented by: Levetiracetam 750 mg/ Sodium (Chloride) 107.5 mls @ 400 mls/hr IV Q12HR [facility] Last Admin: 01/10/19 21:32 Dose: 400 mls/hr Documented by: Magnesium Hydroxide (Milk Of Magnesia) 30 ml PO Q4H PRN PRN Reason: Constipation Metoclopramide HCl (Reglan) 10 mg PO Q6H PRN PRN Reason: Nausea And Vomiting Montelukast Sodium (Singulair) 10 mg PO QPM [facility] Last Admin: 01/10/19 18:03 Dose: 10 mg Documented by: Ondansetron HCl (Zofran) 4 mg IV Q8H PRN PRN Reason: Nausea And Vomiting Promethazine HCl (Phenergan) 25 mg ND Q6H PRN PRN Reason: Nausea And Vomiting Quetiapine Fumarate (Seroquel) 75 mg PO BID [facility] Last Admin: 01/11/19 11:14 Dose: 75 mg Documented by: Sodium Chloride (Sodium Chloride Flush Syringe 10 Ml) 10 ml IV PRN PRN PRN Reason: LINE FLUSH Thiamine HCl (Vitamin B-1) 100 mg PO DAILY [facility] Last Admin: 01/11/19 11:15 Dose: 100 mg Documented by: Physical Examination - Physical Exam Narrative exam: General appearance: somnolent in NAD, non conversant Eyes: anicteric sclerae, moist conjunctivae; no lid-lag; PERRLA HENT: Atraumatic; oropharynx limited Neck: Trachea midline; supple, no thyromegaly or lymphadenopathy Lungs: CTA, with normal respiratory effort and no intercostal retractions CV: RRR, no murmurs Abdomen: Soft, non-tender; no masses or hepatosplenomegaly Extremities: No peripheral edema or extremity lymphadenopathy Skin: Normal temperature, turgor and texture; no rash, ulcers or subcutaneous nodules Psych: not agitated. Neuro: somnolent non conversant no follows commands - Constitutional Vitals: Vital Signs Temp Pulse Resp BP Pulse Ox 98.3 F 72 18 125/94 92 01/11/19 10:31 01/11/19 11:00 01/11/19 09:30 01/11/19 09:30 01/11/19 09:30 Temperature -Last 24 Hours Temperature 98.3 F Temperature 98.3 F Temperature 97.3 F Temperature 98.1 F Temperature 98.1 F Results - Labs CBC & Chem 7: 01/10/19 18:49 01/10/19 18:57 Labs: Abnormal lab results 01/10/19 01/10/19 01/11/19 Range/Units 18:49 18:57 06:04 WBC 3.6 L (4.5-11.0) K/mm3 Potassium 3.0 L D (3.6-5.0) mmol/L BUN 8 L (9-20) mg/dL HDL Cholesterol 34 L (40-59) mg/dL Assessment and Plan Cultures: Blood culture 01/10/2019 no growth today MRSA 01/10/2019 neg Assessment: 73 y/o male with history of Alzheimer's Dementia, HTN, HLD; admitted on 12/20 due to being found on the floor unresponsive with right sided weakness. In the ED patient experienced a witnessed seizure: - Acute encephalopathy: from seizures - New onset seizures: unclear etiology ? meds-induced. MRI brain showed cortical and central atrophy. No blood products, mass lesion, or acute restricted diffusion. Exam is mildly motion degraded but diagnostic. Large lateral ve ntricles presumably ex vacuo dilatation.Per teleneurology patient was outside therapeutic window for TPA. - SIRS: present on admission with fever, elevated lactate; unclear etiology. Blood culture 01/10/2019 no growth today. UA neg. UDS neg. CXR neg. CTA chest minimal dependant atelectasis. Recommendations: - follow-up blood cultures - repeat CXR - stop levaquin and vancomycin - no evidence of bacterial infection - monitor fever, resolved for 48 hours Will follow. Oliva Triplett MD Infectious Diseases Display Manager [facility] ([facility] M [phone] O [phone]
--- NOTE | 2019-01-11 16:32 | XRay Report ---
PROCEDURE: XR CHEST ROUTINE 2V TECHNIQUE: Chest radiograph , PA and lateral views. HISTORY: eval for pneumonia COMPARISONS: CXR 01/09/2019 . FINDINGS: Heart: Normal. Mediastinum/Vessels: Normal. Lungs/Pleural space: Normal. Bony thorax: No acute osseous abnormality. Life support devices: None. IMPRESSION: No acute cardiopulmonary abnormality. No change This document is electronically signed by Roxana Hutchison MD., January 11 2019 04:30:31 PM ET
[2019-01-11] MEDS: NACL 0.45% 1000 ML 1,000 ML IV SCH (16:44)
[2019-01-11] MEDS: SINGULAIR PO SCH (17:34)
--- NOTE | 2019-01-11 18:54 | Progress Note ---
Assessment and Plan Assessment and plan: Encephalopathy, improved neurochecks q 6h Neurology to see new onset seizure in ED MRI no acute stroke neurology following Dementia Lives at SNF Hypertension Fever Blood cultures no growth ID consulted started on empiric abx in ED Full code status History Interval history: Patient with baseline dementia Altered mental status, improved, close to baseline fever resolved seizure in ED Hospitalist Physical - Physical exam Narrative exam: Gen: Not in acute distress, lying in bed, Dementia HEENT: Normocephalic, atraumatic Neck: supple, no JVD Heart: S1 and S2 reg, no murmurs, rubs or gallop Lungs: Clear, no crackles Abd: soft, non tender, non distended, normal BS Ext: No edema, no clubbing, no cyanosis, Neuro: Awake,alert,dementia,moves all ext - Constitutional Vitals: Temp Pulse Resp BP Pulse Ox 98.3 F 72 18 125/94 92 01/11/19 10:31 01/11/19 11:00 01/11/19 09:30 01/11/19 09:30 01/11/19 09:30 General appearance: Present: mild distress Results - Labs CBC & Chem 7: 01/10/19 18:49 01/10/19 18:57 Labs: Laboratory Last Values WBC 3.6 K/mm3 (4.5-11.0) L 01/10/19 18:49 RBC 4.35 M/mm3 (3.65-5.03) 01/10/19 18:49 Hgb 12.6 gm/dl (11.8-15.2) 01/10/19 18:49 Hct 37.6 % (35.5-45.6) 01/10/19 18:49 MCV 86 fl (84-94) 01/10/19 18:49 MCH 29 pg (28-32) 01/10/19 18:49 MCHC 34 % (32-34) 01/10/19 18:49 RDW 15.0 % (13.2-15.2) 01/10/19 18:49 Plt Count 198 K/mm3 (140-440) 01/10/19 18:49 Lymph % (Auto) 33.1 % (13.4-35.0) 01/09/19 11:28 [place] % (Auto) 7.4 % (0.0-7.3) H 01/09/19 11:28 Eos % (Auto) 2.1 % (0.0-4.3) 01/09/19 11:28 Baso % (Auto) 0.9 % (0.0-1.8) 01/09/19 11:28 Lymph # 1.8 K/mm3 (1.2-5.4) 01/09/19 11:28 [place] # 0.4 K/mm3 (0.0-0.8) 01/09/19 11:28 Eos # 0.1 K/mm3 (0.0-0.4) 01/09/19 11:28 Baso # 0.0 K/mm3 (0.0-0.1) 01/09/19 11:28 Seg Neutrophils % 56.5 % (40.0-70.0) 01/09/19 11:28 Seg Neutrophils # 3.1 K/mm3 (1.8-7.7) 01/09/19 11:28 PT 14.0 Sec. (12.2-14.9) 01/09/19 11:28 INR 1.02 (0.87-1.13) 01/09/19 11:28 APTT 30.0 Sec. (24.2-36.6) 01/09/19 11:28 Thrombin Time 16.8 Sec. (15.1-19.6) 01/09/19 11:28 VBG pH 7.441 (7.320-7.420) H 01/09/19 11:28 Sodium 142 mmol/L (137-145) 01/10/19 18:57 Potassium 3.0 mmol/L (3.6-5.0) L D 01/10/19 18:57 Chloride 102.4 mmol/L (98-107) 01/10/19 18:57 Carbon Dioxide 29 mmol/L (22-30) D 01/10/19 18:57 Anion Gap 14 mmol/L 01/10/19 18:57 BUN 8 mg/dL (9-20) L 01/10/19 18:57 Creatinine 1.0 mg/dL (0.8-1.5) 01/10/19 18:57 Estimated GFR > 60 ml/min 01/10/19 18:57 BUN/Creatinine Ratio 8 % 01/10/19 18:57 Glucose 83 mg/dL (75-100) 01/10/19 18:57 POC Glucose 108 (70-105) H 01/09/19 11:05 Lactic Acid 0.80 mmol/L (0.7-2.0) 01/10/19 05:22 Calcium 8.7 mg/dL (8.4-10.2) 01/10/19 18:57 Total Bilirubin 0.30 mg/dL (0.1-1.2) 01/09/19 11:39 AST 17 units/L (5-40) 01/09/19 11:39 ALT 15 units/L (7-56) 01/09/19 11:39 Alkaline Phosphatase 63 units/L (35-129) 01/09/19 11:39 Ammonia 34.0 umol/L (25-60) 01/09/19 11:28 Total Creatine Kinase 99 units/L (55-170) 01/09/19 11:28 CK-MB (CK-2) 1.7 ng/mL (0.0-4.0) 01/09/19 11:28 CK-MB (CK-2) Rel Index 1.7 (0-4) 01/09/19 11:28 Troponin T < 0.010 ng/mL (0.00-0.029) 01/09/19 11:28 Total Protein 7.0 g/dL (6.3-8.2) 01/09/19 11:39 Albumin 3.6 g/dL (3.9-5) L 01/09/19 11:39 Albumin/Globulin Ratio 1.1 % 01/09/19 11:39 Triglycerides 93 mg/dL (2-149) 01/11/19 06:04 Cholesterol 154 mg/dL (50-199) 01/11/19 06:04 LDL Cholesterol Direct 118 mg/dL (50-130) 01/11/19 06:04 HDL Cholesterol 34 mg/dL (40-59) L 01/11/19 06:04 Cholesterol/HDL Ratio 4.52 % 01/11/19 06:04 TSH 0.709 mlU/mL (0.270-4.200) 01/09/19 11:28 Free T4 0.89 ng/dL (0.76-1.46) 01/09/19 11:28 Urine Color Yellow (Yellow) 01/09/19 12:57 Urine Turbidity Clear (Clear) 01/09/19 12:57 Urine pH 5.0 (5.0-7.0) 01/09/19 12:57 Ur Specific Top[place] 1.034 (1.003-1.030) H 01/09/19 12:57 Urine Protein <15 mg/dl mg/dL (Negative) 01/09/19 12:57 Urine Glucose (UA) Neg mg/dL (Negative) 01/09/19 12:57 Urine Ketones Tr mg/dL (Negative) 01/09/19 12:57 Urine Blood Neg (Negative) 01/09/19 12:57 Urine Nitrite Neg (Negative) 01/09/19 12:57 Urine Bilirubin Neg (Negative) 01/09/19 12:57 Urine Urobilinogen 2.0 mg/dL (<2.0) 01/09/19 12:57 Ur Leukocyte Esterase Neg (Negative) 01/09/19 12:57 Urine WBC (Auto) 2.0 /HPF (0.0-6.0) 01/09/19 12:57 Urine RBC (Auto) 4.0 /HPF (0.0-6.0) 01/09/19 12:57 Urine Mucus Few /HPF 01/09/19 12:57 Urine Opiates Screen Presumptive negative 01/09/19 12:52 Urine Methadone Screen Presumptive negative 01/09/19 12:52 Ur Barbiturates Screen Presumptive negative 01/09/19 12:52 Ur Phencyclidine Scrn Presumptive negative 01/09/19 12:52 Ur Amphetamines Screen Presumptive negative 01/09/19 12:52 U Benzodiazepines Scrn Presumptive negative 01/09/19 12:52 Urine Cocaine Screen Presumptive negative 01/09/19 12:52 U Marijuana (THC) Screen Presumptive negative 01/09/19 12:52 Drugs of Abuse Note Disclamer 01/09/19 12:52 Active Medications - Current Medications Current Medications: Generic Name Dose Route Start Last Admin Trade Name Freq PRN Reason Stop Dose Admin Acetaminophen 650 mg 01/09/19 14:19 Tylenol PO Q4H PRN Pain, Mild (1-3) Aspirin 325 mg 01/10/19 10:00 01/11/19 11:15 Aspirin PO 325 mg QDAY [facility] Administration Atorvastatin Calcium 40 mg 01/09/19 22:00 01/10/19 21:21 Lipitor PO 40 mg QHS [facility] Administration Bisacodyl 10 mg 01/09/19 14:19 Dulcolax IN QDAY PRN Constipation Cholecalciferol 2,000 unit 01/10/19 10:00 01/11/19 14:42 Vitamin D3 PO Not Given QDAY [facility] Enoxaparin Sodium 40 mg 01/09/19 22:00 01/10/19 21:22 Lovenox SUB-Q 40 mg QDAY@2200 [facility] Administration Sodium Chloride 1,000 mls @ 50 mls/hr 01/09/19 22:00 01/11/19 16:44 Nacl 0.45% 1000 Ml IV 50 mls/hr DIRECT [facility] Administration Levetiracetam 750 mg/ Sodium 107.5 mls @ 400 mls/hr 01/10/19 11:00 01/11/19 11:00 Chloride IV 400 mls/hr Q12HR [facility] Administration Magnesium Hydroxide 30 ml 01/09/19 14:19 Milk Of Magnesia PO Q4H PRN Constipation Metoclopramide HCl 10 mg 01/09/19 14:19 Reglan PO Q6H PRN Nausea And Vomiting Montelukast Sodium 10 mg 01/09/19 18:00 01/11/19 17:34 Singulair PO Not Given QPM [facility] Ondansetron HCl 4 mg 01/09/19 14:19 Zofran IV Q8H PRN Nausea And Vomiting Promethazine HCl 25 mg 01/09/19 14:19 Phenergan IN Q6H PRN Nausea And Vomiting Quetiapine Fumarate 75 mg 01/09/19 22:00 01/11/19 11:14 Seroquel PO 75 mg BID [facility] Administration Sodium Chloride 10 ml 01/09/19 14:19 Sodium Chloride Flush Syringe 10 Ml IV PRN PRN LINE FLUSH Thiamine HCl 100 mg 01/10/19 10:00 01/11/19 11:15 Vitamin B-1 PO 100 mg DAILY [facility] Administration Nutrition/Malnutrition Assess - Dietary Evaluation Nutrition/Malnutrition Findings: Nutrition Notes Start: 01/10/19 08:43 Freq: Status: Active Protocol: Document 01/11/19 10:09 CP (Rec: 01/11/19 10:11 CP [id number]) Co-Sign 01/11/19 10:09 LP Nutrition Notes Initial or Follow up Brief Note Subjective/Other Information Diet advanced to regular diet. Pt was sleeping at time of visit but daughter reported that he had a good appetite and was eating 100% of his meals. Did not note any visible signs of malnutrition during time of visit. Nutrition Intervention Revisit per MD consult or patient Sign Off request:
[2019-01-11] MEDS: LOVENOX SUB-Q SCH (21:49)
[2019-01-12 05:43] LABS: BUN/Creatinine Ratio 9; Blood Urea Nitrogen 8 mg/dL (9-20); Calcium 8.6 mg/dL (8.4-10.2); Hemolysis Index 55
[2019-01-12] MEDS ORDERED: K-DUR PO SCH (08:30)
--- NOTE | 2019-01-12 08:37 | Progress Note ---
Assessment and Plan Cultures: Blood culture 01/10/2019 no growth today MRSA 01/10/2019 neg Assessment: 73 y/o male with history of Alzheimer's Dementia, HTN, HLD; admitted on 01/09/2019 due to being found on the floor unresponsive with right sided weakness. In the ED patient experienced a witnessed seizure: - Acute encephalopathy: from seizures - New onset seizures: unclear etiology ? meds-induced. MRI brain showed cortical and central atrophy. No blood products, mass lesion, or acute restricted diffusion. Exam is mildly motion degraded but diagnostic. Large lateral ventricles presumably ex vacuo dilatation.Per teleneurology patient was outside therapeutic window for TPA. - SIRS: Resolved. Present on admission with fever, elevated lactate; unclear etiology. Blood culture 01/10/2019 no growth today. UA neg. UDS neg. CXR neg. CTA chest minimal dependant atelectasis. Repeat CXR no consolidation. Recommendations: - follow-up blood cultures -monitor off antibiotics -Clinically stable, ID is signing off [facility] M: [phone] O:[phone] Subjective Date of service: 01/12/19 Interval history: Patient seen and examined. Sitting up in bed, awake, talkative. Unclear thought pattern, continued confusion. No acute distress observed. Objective - Exam Narrative Exam: General appearance: Awake. Alert Conversant. No acute distress Eyes: anicteric sclerae, moist conjunctivae; no lid-lag; PERRLA HENT: Atraumatic; oropharynx limited Neck: Trachea midline; supple, no thyromegaly or lymphadenopathy Lungs: CTA, with normal respiratory effort and no intercostal retractions CV: RRR, no murmurs Abdomen: Soft, non-tender; no masses or hepatosplenomegaly Extremities: No peripheral edema or extremity lymphadenopathy Skin: Normal temperature, turgor and texture; no rash, ulcers or subcutaneous nodules Psych:calm Neuro: Conversant, confused but follows simple commands - Constitutional Vitals: Vital Signs Temp Pulse Resp BP Pulse Ox 98.3 F 82 18 159/104 99 01/12/19 08:00 01/12/19 08:00 01/12/19 08:00 01/12/19 08:00 01/12/19 08:00 Temperature -Last 24 Hours Temperature 98.3 F Temperature 97.6 F Temperature 98.3 F - Labs CBC & Chem 7: 01/10/19 18:49 01/12/19 04:55 Labs: Abnormal lab results 01/12/19 01/12/19 Range/Units 04:55 04:55 Sodium 136 L (137-145) mmol/L Potassium 3.2 L (3.6-5.0) mmol/L Carbon Dioxide 21 L D (22-30) mmol/L BUN 8 L (9-20) mg/dL Phosphorus 1.80 L (2.5-4.5) mg/dL
[2019-01-12] MEDS ORDERED: KPHOS 30 MMOL in NACL 0.9% 500 ML 500 ML IV ONE (09:30)
[2019-01-12] MEDS ORDERED: K-DUR PO ONE ×2 (09:30→13:00)
[2019-01-12] MEDS: ASPIRIN PO SCH (11:54)
[2019-01-12] MEDS: VITAMIN D3 PO SCH (11:54)
[2019-01-12] MEDS: VITAMIN B-1 PO SCH (11:54)
[2019-01-12] MEDS: KEPPRA 750 MG in NACL 0.9% 100 ML IV SCH (11:59)
--- NOTE | 2019-01-12 13:50 | Progress Note ---
Subjective Date of service: 01/12/19 Interval history: went over the MRI and MRA the MRI severe atrophy suspect techbnical defect in the MRA study do not think this is relevant suspect ambuien induced episode Objective - Vital Sign Vital Signs - 12hr 01/12/19 08:00 Temperature 98.3 F Pulse Rate 82 Respiratory 18 Rate Blood Pressure 159/104 [Left] O2 Sat by Pulse 99 Oximetry - Laboratory Findings CBC and BMP: 01/10/19 18:49 01/12/19 04:55 Abnormal Lab Findings: Abnormal Labs 01/09/19 01/09/19 01/09/19 11:05 11:28 11:28 WBC [place] % (Auto) 7.4 H VBG pH Sodium Potassium Chloride Carbon Dioxide BUN Glucose POC Glucose 108 H Lactic Acid 3.60 H* Phosphorus Albumin HDL Cholesterol Ur Specific [place] 01/09/19 01/09/19 01/09/19 11:28 11:39 12:57 WBC [place] % (Auto) VBG pH 7.441 H Sodium Potassium Chloride 110.7 H Carbon Dioxide 21 L BUN 21 H Glucose 113 H POC Glucose Lactic Acid Phosphorus Albumin 3.6 L HDL Cholesterol Ur Specific [place] 1.034 H 01/09/19 01/10/19 01/10/19 13:39 18:49 18:57 WBC 3.6 L [place] % (Auto) VBG pH Sodium Potassium 3.0 L D Chloride Carbon Dioxide BUN 8 L Glucose POC Glucose Lactic Acid 2.20 H* Phosphorus Albumin HDL Cholesterol Ur Specific [place] 01/11/19 01/12/19 01/12/19 06:04 04:55 04:55 WBC [place] % (Auto) VBG pH Sodium 136 L Potassium 3.2 L Chloride Carbon Dioxide 21 L D BUN 8 L Glucose POC Glucose Lactic Acid Phosphorus 1.80 L Albumin HDL Cholesterol 34 L Ur Specific [place]
--- NOTE | 2019-01-12 14:56 | Progress Note ---
Subjective Date of service: 01/12/19 Interval history: Patient seen and examined. Sitting up in bed, awake, talkative. Unclear thought pattern, continued confusion. No acute distress observed. Objective - Constitutional Vitals: Vital Signs Temp Pulse Resp BP Pulse Ox 98.3 F 82 18 159/104 99 01/12/19 08:00 01/12/19 08:00 01/12/19 08:00 01/12/19 08:00 01/12/19 08:00 Temperature -Last 24 Hours Temperature 98.3 F Temperature 97.6 F - Labs CBC & Chem 7: 01/10/19 18:49 01/12/19 04:55 Labs: Abnormal lab results 01/12/19 01/12/19 Range/Units 04:55 04:55 Sodium 136 L (137-145) mmol/L Potassium 3.2 L (3.6-5.0) mmol/L Carbon Dioxide 21 L D (22-30) mmol/L BUN 8 L (9-20) mg/dL Phosphorus 1.80 L (2.5-4.5) mg/dL
--- NOTE | 2019-01-12 15:50 | Discharge Summary ---
Providers - Providers Date of Admission: 01/09/19 14:19 Date of discharge: 01/12/19 Attending physician: GINI VELEZ 01/09/19 14:19 Occupational Therapy Evaluate and Treat [CONS] Routine Comment: Reason For Exam: Neuro deficits Physical Therapy Evaluation and Treat [CONS] Routine Comment: Reason For Exam: Neuro deficits 01/09/19 14:20 Speech Therapy Evaluation and Treat [CONS] Routine Reason For Exam: swallow eval 01/09/19 16:03 Speech Therapy Evaluation and Treat [CONS] Routine Reason For Exam: altered mental status 01/10/19 08:17 Consult to Case Management [CONS] Routine Services Needed at Discharge: Other Notified:: case management Comment:: DC planning. [facility] 01/10/19 11:28 Consult to Physician [CONS] Routine Comment: Consulting Provider: VIOLA NEVES Physician Instructions: Reason For Exam: fever 01/11/19 11:08 Consult to Physician [CONS] Routine Comment: Consulting Provider: ROOSEVELT REYNAGA Physician Instructions: Reason For Exam: Altered mental status, seizures in ED Primary care physician: CESAR BENÍTEZ MD Hospitalization Condition: Fair Hospital course: Patient is 73 [facility] resident with hypertension, hyperlipidemia, Alzheimers dementia, prostate cancer. He was brought to ED for evaluation. Pt history taken from son and daughter who is at bedside during exam and interview. As per family, the patient was in his usual state of health around bedtime at 2200hrs. Patient was found by SNF staff around 1000 Hrs on morning of admission on the floor, unresponsive, with right sided weakness. EMS notified, he was brought to ED. Patient was seen and evaluated in ED and found to have symptoms consistent with encephalopathy, possible stroke, volume depletion. Patient also experienced a witnessed seizure in ED and was treated with Ativan. Teleneurology was consulted in ED. As per teleneurology patient was outside therapeutic window for TPA. Patient was lethargic, confused, was admitted to telemetry. he was evaluated by neurology and ID Physician. MRI was done did not show any new changes, was negative for stroke.Blood cultures were done for fever but came back negative. I had multiple discussions with family, her daughters at bedside. He was also found to have hyperlipidemia and prescribed Lipitor on discharge. His mental status went back to baseline in few days and he was discharged back to SNF on 01/12/19. I discussed with Neurologist, Dr. Reynaga,and he stated patient does not need to be discharged on anti- seizure medication. Total tie spent on discharge, 37 mins Disposition: [id number]-06 HOME UNDER [facility] - Discharge Diagnoses (1) HLD (hyperlipidemia) Status: Acute Qualifiers: Hyperlipidemia type: mixed hyperlipidemia Qualified Code(s): E78.2 - Mixed hyperlipidemia (2) HTN (hypertension) Status: Acute Qualifiers: Hypertension type: essential hypertension Qualified Code(s): I10 - Essential (primary) hypertension (3) History of prostate cancer Status: Acute (4) Acute metabolic encephalopathy Status: Acute (5) Seizures Status: Acute (6) Fever Status: Acute (7) Hypokalemia Status: Acute (8) Hypophosphatemia Status: Acute Core Measure Documentation - Palliative Care Palliative Care/ Comfort Measures: Not Applicable - Core Measures Any of the following diagnoses?: none Exam - Constitutional Vitals: Temp Pulse Resp BP Pulse Ox 97.5 F L 64 18 153/104 91 01/12/19 13:09 01/12/19 13:09 01/12/19 13:09 01/12/19 13:09 01/12/19 13:09 Plan Activity: advance as tolerated Diet: low fat, low cholesterol, low salt Additional Instructions: 1.Follow up with PCP in 1 week. Follow up with: CESAR BENÍTEZ MD [Primary Care Provider] - 3-5 Days Prescriptions: AtorvaSTATin [Lipitor] 40 mg PO QHS #30 tab
[2019-01-12] MEDS ORDERED: ZESTRIL PO SCH (16:00)
[2019-01-12] MEDS ORDERED: NORVASC PO SCH (16:00)
[2019-01-12] MEDS: SINGULAIR PO SCH (18:35)
[2019-01-12 20:18] VITALS: BP 144/97
[2019-01-12] MEDS ORDERED: KEPPRA PO SCH (22:00)
== END 2019-01-12 20:50 | disposition home health service (06) | DRG 101 ==
LOC: ED 10:59 → 4A 14:19 → 2B-ACE 01-11 17:54
PROVIDERS: ADMIT Internal Medicine; ATTEND Internal Medicine
DX: G40.89 Other seizures (principal); G93.40 Encephalopathy, unspecified; R65.10 Systemic inflammatory response syndrome (SIRS) of non-infectious origin without acute organ dysfunction; E78.2 Mixed hyperlipidemia; I10 Essential (primary) hypertension; G30.9 Alzheimer's disease, unspecified; E86.0 Dehydration; F02.80 Dementia in other diseases classified elsewhere, unspecified severity, without behavioral disturbance, psychotic disturbance, mood disturbance, and anxiety; Z82.49 Family history of ischemic heart disease and other diseases of the circulatory system; Z79.82 Long term (current) use of aspirin; Z79.899 Other long term (current) drug therapy; Z85.46 Personal history of malignant neoplasm of prostate
CPT/HCPCS: 36415; 70450; 70544; 70551; 71045; 71046; 71275; 72125; 80048; 80053; 80061; 80307; 81001; 82140; 82550; 82553; 82805; 82962; 83735; 84100; 84132; 84439; 84443; 84484; 85025; 85027; 85610; 85670; 85730; 87040; 87116; 93005; 93010; 93306; 93880; 95819; 96374; 96375; G0378; A9270-GY; J1650; J1953; J1956; J2060; J3370; J7030; J7040; J7050; Q9967